=== PATIENT | female | born 1985 | race Caucasian/White ===

== ENCOUNTER → 2017-06-25 | Outpatient (CLI) | payer OTHER ==
[2017-06-25 16:40] LABS: HCT 35.9 % (34.0-46.0); HGB 11.6 gm/dL (11.4-16.0); MCHC 32.4 g/dL (31.0-37.0); MCV 89.7 fL (80.0-100.0); Mean Platelet Volume 8.4; Platelet Count 209 k/uL (150-450); RBC 4.01 m/uL (3.80-5.40); RDW 14.6 % (11.5-15.5); WBC 9.5 k/uL (3.8-10.6)
[2017-06-25 17:09] LABS: ALT 76 U/L (9-52); AST 41 U/L (14-36); Albumin 3.8 g/dL (3.5-5.0); Alkaline Phosphatase 225 U/L (38-126); Bilirubin, Delta 0.1 mg/dL (0.0-0.2); Bilirubin,Unconjugated 0.1 mg/dL (0.0-1.1); Glucose 84 mg/dL (74-99); Total Bilirubin 0.2 mg/dL (0.2-1.3); Total Protein 6.9 g/dL (6.3-8.2)
[2017-06-26 01:39] LABS: HIV AB P24 Non-Reactive (Non-Reactive); HIV P24 AG Non-Reactive (Non-Reactive)
[2017-06-26 05:08] LABS: Toxoplasma Antibody (IgG) <3.0 IU/mL (<7.2); Toxoplasma Antibody (IgM) <3.0 AU/mL (<8.0)
--- NOTE | 2017-06-26 08:10 | US ---
EXAMINATION TYPE: US OB <= 14 wk fetus DATE OF EXAM: 06/25/2017 COMPARISON: NONE CLINICAL HISTORY: 31-year-old female [id number] Confirm Dates. 5, para 3 EXAM PERFORMED: Transabdominal (TA) FINDINGS: EXAM MEASUREMENTS: GESTATIONAL AGE / DATING Physician Established: (14 weeks/3 days) EDC: 12/21/2017 Dates by LMP: (14 weeks/3 days) EDC: 12/21/2017 Dates by First Scan: This is 1st scan Dates by Current Scan for: (12 weeks/0 days +/- 1 week 1 day) EDC: 01/07/2018 MATERNAL ANATOMY Uterus: 12.7 x 5.2 x 10.0cm, anteverted Right Ovary: 2.8 x 1.2 x 1.5cm Left Ovary: 3.2 x 1.8 x 1.8cm Post CDS / Adnexa: wnl Presence of free fluid: no Presence of corpus luteal cyst: not seen Presence of subchorionic bleed: 3.3 x 1.2 x 1.8cm hypoechoic area right of gestational sac. GESTATION / SURVEY CRL: 5.4cm (12 weeks/0 days) Yolk Sac (normal less than 6mm): 5.1mm, upper limits of normal. 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 IMPRESSION: 1. Single live intrauterine with gestational age of 12 weeks 0 days by crown-rump length. T his is smaller and discordant as compared to established gestational age (14 weeks 3 days). Correlate for accuracy of recall of LMP. 2. Moderate-sized perigestational bleed. Given this finding and the discordant gestational age, consi brittany short interval follow-up in 2-3 weeks. 3. Otherwise, complete survey recommended at 18-20 weeks.
== END | disposition home or self-care (01) ==
LOC: RADUSWWP 15:46
PROVIDERS: ATTEND Obstetrics & Gynecology
DX: O26.812 Pregnancy related exhaustion and fatigue, second trimester (principal); O36.5920 Maternal care for other known or suspected poor fetal growth, second trimester, not applicable or unspecified; O20.8 Other hemorrhage in early pregnancy; Z3A.14 14 weeks gestation of pregnancy
CPT/HCPCS: 36415; 76801; 76813; 80076; 82565; 82947; 85027; 86592; 86762; 86777; 86778; 86850; 86900; 86901; 87340; 87390

== ENCOUNTER → 2017-10-03 | Outpatient (CLI) | payer OTHER ==
[2017-10-03 14:16] LABS: HCT 39.2 % (34.0-46.0); HGB 12.8 gm/dL (11.4-16.0); MCH 29.4 pg (25.0-35.0); MCHC 32.6 g/dL (31.0-37.0); MCV 90.4 fL (80.0-100.0); Mean Platelet Volume 7.3; Platelet Count 199 k/uL (150-450); RBC 4.34 m/uL (3.80-5.40); RDW 12.9 % (11.5-15.5); WBC 9.8 k/uL (3.8-10.6)
[2017-10-03 14:28] LABS: Albumin 3.6 g/dL (3.5-5.0); Bilirubin, Delta 0.2 mg/dL (0.0-0.2); Bilirubin,Unconjugated 0.3 mg/dL (0.0-1.1); Total Bilirubin 0.5 mg/dL (0.2-1.3); Total Protein 6.5 g/dL (6.3-8.2)
== END | disposition home or self-care (01) ==
LOC: LABWHC1 12:52
PROVIDERS: ATTEND Obstetrics & Gynecology
DX: Z34.82 Encounter for supervision of other normal pregnancy, second trimester (principal); Z3A.00 Weeks of gestation of pregnancy not specified
CPT/HCPCS: 36415; 80076; 82950; 85027

== ENCOUNTER → 2017-12-25 | Outpatient (CLI) | payer OTHER | END | disposition home or self-care (01) | LOC: FBPOP 22:44 | PROVIDERS: ATTEND Obstetrics & Gynecology | DX: O62.9 Abnormality of forces of labor, unspecified (principal); Z3A.38 38 weeks gestation of pregnancy | CPT/HCPCS: 59025; G0463; 99213 ==

== ENCOUNTER 2017-12-31 06:02 | Inpatient (IN) | payer OTHER ==
[2017-12-31] MEDS ORDERED: OXYTOCIN 20 UNITS/1000 ML NS 1,000 ML IV SCH ×2 (06:14→11:30)
[2017-12-31] MEDS ORDERED: TERBUTALINE 1 MG/ML VIAL SQ PRN (06:14)
[2017-12-31] MEDS ORDERED: METHYLERGONOVINE 0.2 MG/ML 1 ML AMP IM PRN (06:14)
[2017-12-31] MEDS ORDERED: LIDOCAINE 1% (PF) 10 MG/ML (30 ML SDV) SQ PRN (06:14)
[2017-12-31] MEDS ORDERED: OXYTOCIN 10 UNIT/ML 1 ML VIAL IM PRN (06:14)
[2017-12-31] MEDS ORDERED: CARBOPROST TROMETHAMINE 250 MCG/ML 1 ML AMP IM PRN (06:14)
[2017-12-31] MEDS ORDERED: LACTATED RINGERS 1,000 ML IV SCH (06:14)
--- NOTE | 2017-12-31 06:32 | P.HPOB ---
History of Present Illness H&P Date: 12/31/17 Chief Complaint: Requested induction of labor This patient is a pleasant 32-year-old 5 para 3 female estimated date of confinement 01/08/2008 estimated gestational age 39-0/7 weeks who presents to labor and delivery for requested induction of labor. Patient's care has been complicated by chronic sclerosing cholangitis however her liver function tests have remained good. otherwise has been uncomplicated. Review of Systems Gastrointestinal: Reports heartburn Genitourinary: Reports Menstruation: Reports amenorrhea Past Medical History Past Medical History: Liver Disease Additional Past Medical History / Comment(s): Patient has a history of primary sclerosing cholangitis. Patient also has ulcerative colitis. History of Any Multi-Drug Resistant Organisms: None Reported Past Surgical History: Adenoidectomy, Tonsillectomy Past Anesthesia/Blood Transfusion Reactions: No Reported Reaction Past Psychological History: Bipolar Smoking Status: Never smoker Past Alcohol Use History: None Reported Past Drug Use History: None Reported - Past Family History Mother Family Medical History: Thyroid Disorder Additional Family Medical History / Comment(s): pt states that mom took medication for this disorder Medications and Allergies Home Medications Medication Instructions Recorded Confirmed Type Mesalamine [Asacol Hd] 800 mg PO DAILY 01/05/15 01/05/15 History Pnv No.95/Ferrous Fum/Folic AC 1 each PO DAILY 12/25/17 12/25/17 History [ Multivitamin Tablet] Allergies Allergy/AdvReac Type Severity Reaction Status Date / Time NSAIDS (Non-Steroidal Allergy Mild Nausea & Verified 12/31/17 06:14 Anti-Inflamma Vomiting Exam Intake and Output 12/30/17 12/30/17 12/31/17 14:59 22:59 06:59 Other: Weight 92.533 kg - OBG Physical Exam Abdomen: bowel sounds normal, no diffuse tenderness, no bruit present, no guarding noted, no hepatomegaly, no splenomegaly, no mass Vulva: both: normal Vagina: normal moisture, no discharge Cervix: no lesion (Cervix is 4 cm dilated 50% effaced soft.), no discharge Uterus: enlarged (Fundal height in the office was 37 cm) Results blood work shows she is A positive, rubella immune, RPR nonreactive, HIV negative, hepatitis B negative, group B strep was negative, Glucola was normal, ultrasounds have been normal, liver function tests have been mildly elevated but stable. Assessment and Plan Assessment: This is a pleasant 32-year-old 5 para 3 female 39-0/7 weeks gestation with known primary sclerosing cholangitis which is stable, favorable cervix requesting induction of labor. Plan is induction of labor and anticipate vaginal delivery. (1) Elective induction of labor planned Current Visit: No Status: Acute Code(s): [id number] - SNOMED Code(s): 198454176 (2) Primary sclerosing cholangitis Current Visit: No Status: Chronic Code(s): K83.0 - CHOLANGITIS SNOMED Code (s): 530714641
[2017-12-31 06:52] LABS: Basophils % (A) 0 %; Eosinophils # (A) 0.1 k/uL (0-0.7); Eosinophils % (A) 1 %; HGB 13.9 gm/dL (11.4-16.0); Lymphocytes # (A) 1.6 k/uL (1.0-4.8); Lymphocytes % (A) 20 %; MCH 31.4 pg (25.0-35.0); MCHC 34.8 g/dL (31.0-37.0); MCV 90.2 fL (80.0-100.0); Mean Platelet Volume 7.4; Monocytes # (A) 0.7 k/uL (0-1.0); Monocytes % (A) 8 %; Neutrophils # (A) 5.7 k/uL (1.3-7.7); Neutrophils % (A) 68 %; Platelet Count 205 k/uL (150-450); RBC 4.44 m/uL (3.80-5.40); WBC 8.4 k/uL (3.8-10.6)
[2017-12-31 06:59] LABS: Albumin 3.7 g/dL (3.5-5.0); Bilirubin, Delta 0.2 mg/dL (0.0-0.2); Bilirubin,Unconjugated 0.3 mg/dL (0.0-1.1); Total Bilirubin 0.5 mg/dL (0.2-1.3); Total Protein 6.7 g/dL (6.3-8.2)
[2017-12-31 08:05] VITALS: RESP 16; BMI 33.9
--- NOTE | 2017-12-31 11:27 | P.PROBDLV ---
Vaginal Delivery Note - . Vaginal Delivery Note: Normal vaginal delivery viable male Apgars 8 and 9 delivery time is 1114 hrs. Please see dictated H&P intimate details of this patient's admission. Brief summary this pleasant 32-year-old 5 para 3 female 39-0/7 weeks gestation admitted to labor and delivery for requested induction of labor. Patient's 4 cm dilated on admission has artificial rupture membranes for clear fluid. Labor is induced with Pitocin per protocol. She does not request anything for pain control. Patient's labor progresses quickly she gets to complete. With a proximally 3 contraction she pushes the head to the perineum. Posterior perineum was supported and we have controlled delivery of the infant's head over the intact perineum. Mouth and nares are bulb suctioned. There is a nuchal cord which is loose and reduced. We then have deliver the anterior and posterior shoulder and rest this infant's body. This is a vigorous viable male Apgars are 8 and 9 delivery time was 1114 hrs. After delivery of the the umbilical cord is doubly clamped and cut appears to be trivascular. Placenta spontaneously delivered intact. Estimated blood loss is 100 mL. There are no lacerations and no repair. There are no complications. All counts are correct 3.
[2017-12-31] MEDS ORDERED: WITCH HAZEL 1 EACH MED..PAD TOPICAL PRN (11:30)
[2017-12-31] MEDS ORDERED: diphenhydrAMINE 25 MG CAP PO PRN (11:30)
[2017-12-31] MEDS ORDERED: LANOLIN CREAM 5 GM TUBE TOPICAL PRN (11:30)
[2017-12-31] MEDS ORDERED: BISACODYL 10 MG SUPP RECTAL PRN (11:30)
[2017-12-31] MEDS ORDERED: IBUPROFEN 600 MG TAB PO PRN (11:30)
[2017-12-31] MEDS ORDERED: diphenhydrAMINE 50 MG/ML 1 ML VIAL IVP PRN (11:30)
[2017-12-31] MEDS ORDERED: ZOLPIDEM 5 MG TAB PO PRN (11:30)
[2017-12-31] MEDS ORDERED: SIMETHICONE 80 MG CHEWABLE PO PRN (11:30)
[2017-12-31] MEDS ORDERED: HYDROCORTISONE 2.5% RECTAL CREAM 30 GM TUBE RECTAL PRN (11:30)
[2017-12-31] MEDS ORDERED: ACETAMINOPHEN TAB 325 MG TAB PO PRN (11:30)
[2017-12-31] MEDS ORDERED: BENZOCAINE/MENTHOL SPRAY 1 GM/SPRAY AEROSOL TOPICAL PRN (11:30)
[2017-12-31] MEDS: SENNOSIDES-DOCUSATE SODIUM 1 EACH TAB PO SCH ×2 (12:12→20:10)
[2018-01-01] MEDS: SENNOSIDES-DOCUSATE SODIUM 1 EACH TAB PO SCH ×2 (08:20→08:33)
[2018-01-01 08:51] VITALS: BP 116/75; PULSE 71; TEMP 98
--- NOTE | 2018-01-01 09:01 | P.DS ---
Providers Date of admission: 12/31/17 06:02 Expected date of discharge: 01/01/18 Attending physician: Bruce Gross Primary care physician: Stated None Hospital Course: This is a 32-year-old female 5 para 3 at 39-0/7 weeks who presented for induction of labor. She delivered vaginally a viable male infant on 12/31/2017 with scores of 9 at 1 minute and 9 at 5 minutes and weight of 7 lbs. 7 oz. Her course has been uncomplicated. She is breast- feeding. Lochia is decreasing. Pain is well-controlled. Vital signs are stable. Abdomen is soft with fundus firm and nontender. Extremity show negative Homans. Impression is status post vaginal delivery day #1. Plan is to discharge home today. Routine instructions are given. She is advised to follow up with Dr. Gross in 6 weeks. She is advised to call the office if she has any further questions or concerns prior to her appointment time. Procedures: Oxytocin induction of labor Spontaneous vaginal delivery of a viable male on 12/31/2017 Patient Condition at Discharge: Stable Plan - Discharge Summary New Discharge Prescriptions: No Action Mesalamine [Asacol Hd] 800 mg PO DAILY Pnv No.95/Ferrous Fum/Folic AC [ Multivitamin Tablet] 1 each PO DAILY Discharge Medication List Mesalamine [Asacol Hd] 800 mg PO DAILY 01/05/15 [History] Pnv No.95/Ferrous Fum/Folic AC [ Multivitamin Tablet] 1 each PO DAILY [History] Follow up Appointment(s)/Referral(s): Bruce Gross MD [STAFF PHYSICIAN] - 6 Weeks Activity/Diet/Wound Care/Special Instructions: Instructions 1. Do not begin any exercise program for 3 weeks. 2. Do not resume sexual relations for 3 weeks or longer if uncomfortable. 3. You may take tub baths or showers at any time. 4. You may use tampons if desired after 3 weeks. 5. Keep the area of episiotomy (stitches) clean and dry. 6. If you are not nursing, wear a good fitting, supportive bra during the day and limit fluid intake for at least 1 week to prevent breast engorgement. 7. Call the office, [phone], within the next week to make appointment for your 6 week checkup if it has not already been made. 8. Report any of the following occurrences to the doctor promptly: a. Heavy, excessive bleeding b. Chills, fever c. Burning or frequency of urination d. Pain or redness and breasts if nursing e. Increasing pain or swelling in episiotomy (stitches). In addition to the above instructions, the following additional should be followed: 1. No heavy lifting or straining (exercising) until after 6 week checkup. 2. Keep abdominal incision clean and dry: You may wear a dressing if more comfortable. 3. Make office appointment for 10 days after going home or as instructed by her doctor. Discharge Disposition: HOME SELF-CARE
== END 2018-01-01 13:15 | disposition home or self-care (01) | DRG 775 ==
LOC: 4FBP 06:02
PROVIDERS: ADMIT Obstetrics & Gynecology; ATTEND Obstetrics & Gynecology
PROC: 10907ZC Drainage of Amniotic Fluid, Therapeutic from Products of Conception, Via Natural or Artificial Opening (ICD-10-PCS; principal; 2017-12-31)
PROC: 10E0XZZ Delivery of Products of Conception, External Approach (ICD-10-PCS; 2017-12-31)
PROC: 3E033VJ Introduction of Other Hormone into Peripheral Vein, Percutaneous Approach (ICD-10-PCS; 2017-12-31)
DX: O69.81X0 Labor and delivery complicated by cord around neck, without compression, not applicable or unspecified (principal); O26.62 Liver and biliary tract disorders in childbirth; Z37.0 Single live birth; Z3A.39 39 weeks gestation of pregnancy; Z79.1 Long term (current) use of non-steroidal anti-inflammatories (NSAID); Z88.6 Allergy status to analgesic agent
CPT/HCPCS: 80076; 85025

== ENCOUNTER 2018-06-18 14:26 | Inpatient (IN) | payer MEDICAID, OTHER ==
[2018-06-18] MEDS ORDERED: SODIUM CHLORIDE 0.9% 1,000 ML IV ONE (15:36)
[2018-06-18] MEDS ORDERED: SODIUM CHLORIDE 0.9% 1,000 ML IV SCH (15:45)
--- NOTE | 2018-06-18 16:01 | ED ---
Recheck HPI - General Chief Complaint: Recheck/Abnormal Lab/Rx Stated Complaint: Feels "foggy", heart is racing Time Seen by Provider: 06/18/18 15:24 Source: patient, RN notes reviewed, old records reviewed Mode of arrival: ambulatory Limitations: no limitations - History of Present Illness Initial Comments: Patient is a 32-year-old female who presents emergency Department today with complaints of feeling foggy and not acting right. Patient has a history of primary sclerosing cholangitis. She previously followed with Dr. Oliveira and also has regular [facility]. Patient reports that she returned home from a vacation in [place] this past week. She reports that while she was in [place] she was hospitalized because of being very sick. She seems confused and not able to tell me her exact finishing diagnosis. But she was sent home on steroids and antibiotics and mesalamine. Patient states that she does not know if she is taking her medications appropriately. She states that she seems very confused and scatter brained. Patient denies any headache. She reports some mild abdominal discomfort and is had a poor appetite over the past few days. Patient is a mother of 4 children, and is currently breast-feeding. She states that it seemed like her milk supplies dwiddling as well. Patient states that she is concerned that her liver enzymes may be elevated causing her to feel foggy and confused. - Related Data Home Medications Medication Instructions Recorded Confirmed Mesalamine [Asacol Hd] 2,400 mg PO BID 01/05/15 06/18/18 Levofloxacin [Levaquin] 500 mg PO DAILY 06/18/18 06/18/18 methylPREDNISolone [Medrol Dose See Taper PO DIRECTED 06/18/18 06/18/18 Pack] metroNIDAZOLE [Flagyl] 500 mg PO TID 06/18/18 06/18/18 Allergies Allergy/AdvReac Type Severity Reaction Status Date / Time NSAIDS (Non-Steroidal AdvReac Mild Nausea & Verified 06/18/18 16:01 Anti-Inflamma Vomiting Review of Systems ROS Statement: Those systems with pertinent positive or pertinent negative responses have been documented in the HPI. ROS Other: All systems not noted in ROS Statement are negative. Past Medical History Past Medical History: Liver Disease Additional Past Medical History / Comment(s): Patient has a history of primary sclerosing cholangitis. Patient also has ulcerative colitis. History of Any Multi-Drug Resistant Organisms: None Reported Past Surgical History: Adenoidectomy, Tonsillectomy Past Anesthesia/Blood Transfusion Reactions: No Reported Reaction Past Psychological History: Bipolar Smoking Status: Never smoker Past Alcohol Use History: None Reported Past Drug Use History: None Reported - Past Family History Mother Family Medical History: Thyroid Disorder Additional Family Medical History / Comment(s): pt states that mom took medication for this disorder General Exam - General Exam Comments Initial Comments: 32-year-old female. Alert and oriented times 3. Patient has somewhat confused conversation and needs to be redirected. Limitations: no limitations General appearance: alert, in no apparent distress Head exam: Present: atraumatic, normocephalic, normal inspection Eye exam: Present: normal appearance, PERRL, EOMI. Absent: scleral icterus, conjunctival injection, periorbital swelling ENT exam: Present: normal exam, mucous membranes moist Neck exam: Present: normal inspection. Absent: tenderness, meningismus, lymphadenopathy Respiratory exam: Present: normal lung sounds bilaterally. Absent: respiratory distress, wheezes, rales, rhonchi, stridor Cardiovascular Exam: Present: regular rate, normal rhythm, normal heart sounds. Absent: systolic murmur, diastolic murmur, rubs, gallop, clicks GI/Abdominal exam: Present: soft, normal bowel sounds. Absent: distended, tenderness, guarding, rebound, rigid Extremities exam: Present: normal inspection, full ROM, normal capillary refill. Absent: tenderness, pedal edema, joint swelling, calf tenderness Back exam: Present: normal inspection Neurological exam: Present: alert, oriented X3, CN II-XII intact Psychiatric exam: Present: normal affect, normal mood, other (Patient has tangential conversation. ) Skin exam: Present: warm, dry, intact, normal color. Absent: rash Course Vital Signs 06/18/18 14:36 Temperature 98.2 F Pulse Rate 66 Respiratory 20 Rate Blood Pressure 135/84 O2 Sat by Pulse 100 Oximetry Medical Decision Making - Medical Decision Making 32-year-old female presents emergency department today with fogginess confusion. She states she's history of primary sclerosing cholangitis. She is concerned that her liver enzymes may be elevated. She was recently admitted and discharged from [facility]. At that time she was started on steroids, Cipro and Flagyl. She's been taking steroids as prescribed. On reevaluation Patient does admit that she has a psychiatric history. Patient has been diagnosed with schizophrenia and bipolar disorder. She's been off medications for many years. She does her admit to multiple stressors within her life. 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 In examination she has no abdominal tenderness she appears well but has a very confused conversation. Tangential conversations and Patient is has to be redirected frequently, no focal deficits on neuro exam. DT of her brain was reviewed and negative for any acute process. After evaluation and normal CT I discussed the case with on-call psych nurse. She evaluated the Patient immediately to believe the patient's started to go into acute psychosis due to possibility of steroids as well as her underlying mental illness history.Patient agrees to all Yaniv sign and first inpatient psychiatric treatment. Her children are home with her . - Lab Data Result diagrams: 06/18/18 16:07 06/18/18 15:55 Lab Results 06/18/18 06/18/18 06/18/18 Range/Units 15:55 15:55 15:55 WBC (3.8-10.6) k/uL RBC (3.80-5.40) m/uL Hgb (11.4-16.0) gm/dL Hct (34.0-46.0) % MCV (80.0-100.0) fL MCH (25.0-35.0) pg MCHC (31.0-37.0) g/dL RDW (11.5-15.5) % Plt Count (150-450) k/uL Neutrophils % % Lymphocytes % % Monocytes % % Eosinophils % % Basophils % % Neutrophils # (1.3-7.7) k/uL Lymphocytes # (1.0-4.8) k/uL Monocytes # (0-1.0) k/uL Eosinophils # (0-0.7) k/uL Basophils # (0-0.2) k/uL PT (9.0-12.0) sec INR (<1.2) APTT (22.0-30.0) sec Sodium 141 (137-145) mmol/L Potassium 4.1 (3.5-5.1) mmol/L Chloride 106 (98-107) mmol/L Carbon Dioxide 24 (22-30) mmol/L Anion Gap 11 mmol/L BUN 12 (7-17) mg/dL Creatinine 0.53 (0.52-1.04) mg/dL Est GFR (CKD-EPI)AfAm >90 (>60 ml/min/1.73 sqM) Est GFR (CKD-EPI)NonAf >90 (>60 ml/min/1.73 sqM) Glucose 91 (74-99) mg/dL Calcium 9.5 (8.4-10.2) mg/dL Total Bilirubin 0.7 (0.2-1.3) mg/dL AST 29 (14-36) U/L ALT 55 H (9-52) U/L Alkaline Phosphatase 299 H (38-126) U/L Ammonia <9 (<30) umol/L Total Protein 7.5 (6.3-8.2) g/dL Albumin 4.2 (3.5-5.0) g/dL Urine Color Urine Appearance (Clear) Urine pH (5.0-8.0) Ur Specific [place] (1.001-1.035) Urine Protein (Negative) Urine Glucose (UA) (Negative) Urine Ketones (Negative) Urine Blood (Negative) Urine Nitrite (Negative) Urine Bilirubin (Negative) Urine Urobilinogen (<2.0) mg/dL Ur Leukocyte Esterase (Negative) Urine HCG, Qual Not Detected (Not Detectd) Urine Opiates Screen (NotDetected) Ur Oxycodone Screen (NotDetected) Urine Methadone Screen (NotDetected) Ur Propoxyphene Screen (NotDetected) Ur Barbiturates Screen (NotDetected) U Tricyclic Antidepress (NotDetected) Ur Phencyclidine Scrn (NotDetected) Ur Amphetamines Screen (NotDetected) U Methamphetamines Scrn (NotDetected) U Benzodiazepines Scrn (NotDetected) Urine Cocaine Screen (NotDetected) U Marijuana (THC) Screen (NotDetected) 06/18/18 06/18/18 06/18/18 Range/Units 15:55 15:55 15:55 WBC (3.8-10.6) k/uL RBC (3.80-5.40) m/uL Hgb (11.4-16.0) gm/dL Hct (34.0-46.0) % MCV (80.0-100.0) fL MCH (25.0-35.0) pg MCHC (31.0-37.0) g/dL RDW (11.5-15.5) % Plt Count (150-450) k/uL Neutrophils % % Lymphocytes % % Monocytes % % Eosinophils % % Basophils % % Neutrophils # (1.3-7.7) k/uL Lymphocytes # (1.0-4.8) k/uL Monocytes # (0-1.0) k/uL Eosinophils # (0-0.7) k/uL Basophils # (0-0.2) k/uL PT 10.3 (9.0-12.0) sec INR 1.0 (<1.2) APTT 22.3 (22.0-30.0) sec Sodium (137-145) mmol/L Potassium (3.5-5.1) mmol/L Chloride (98-107) mmol/L Carbon Dioxide (22-30) mmol/L Anion Gap mmol/L BUN (7-17) mg/dL Creatinine (0.52-1.04) mg/dL Est GFR (CKD-EPI)AfAm (>60 ml/min/1.73 sqM) Est GFR (CKD-EPI)NonAf (>60 ml/min/1.73 sqM) Glucose (74-99) mg/dL Calcium (8.4-10.2) mg/dL Total Bilirubin (0.2-1.3) mg/dL AST (14-36) U/L ALT (9-52) U/L Alkaline Phosphatase (38-126) U/L Ammonia (<30) umol/L Total Protein (6.3-8.2) g/dL Albumin (3.5-5.0) g/dL Urine Color Yellow Urine Appearance Clear (Clear) Urine pH 6.5 (5.0-8.0) Ur Specific [place] 1.009 (1.001-1.035) Urine Protein Negative (Negative) Urine Glucose (UA) Negative (Negative) Urine Ketones Trace H (Negative) Urine Blood Negative (Negative) Urine Nitrite Negative (Negative) Urine Bilirubin Negative (Negative) Urine Urobilinogen <2.0 (<2.0) mg/dL Ur Leukocyte Esterase Negative (Negative) Urine HCG, Qual (Not Detectd) Urine Opiates Screen Not Detected (NotDetected) Ur Oxycodone Screen Not Detected (NotDetected) Urine Methadone Screen Not Detected (NotDetected) Ur Propoxyphene Screen Not Detected (NotDetected) Ur Barbiturates Screen Not Detected (NotDetected) U Tricyclic Antidepress Not Detected (NotDetected) Ur Phencyclidine Scrn Not Detected (NotDetected) Ur Amphetamines Screen Not Detected (NotDetected) U Methamphetamines Scrn Not Detected (NotDetected) U Benzodiazepines Scrn Not Detected (NotDetected) Urine Cocaine Screen Not Detected (NotDetected) U Marijuana (THC) Screen Not Detected (NotDetected) 06/18/18 Range/Units 16:07 WBC 15.0 H (3.8-10.6) k/uL RBC 4.34 (3.80-5.40) m/uL Hgb 13.1 (11.4-16.0) gm/dL Hct 38.8 (34.0-46.0) % MCV 89.4 (80.0-100.0) fL MCH 30.3 (25.0-35.0) pg MCHC 33.9 (31.0-37.0) g/dL RDW 13.6 (11.5-15.5) % Plt Count 325 (150-450) k/uL Neutrophils % 78 % Lymphocytes % 12 % Monocytes % 5 % Eosinophils % 1 % Basophils % 0 % Neutrophils # 11.7 H (1.3-7.7) k/uL Lymphocytes # 1.8 (1.0-4.8) k/uL Monocytes # 0.8 (0-1.0) k/uL Eosinophils # 0.2 (0-0.7) k/uL Basophils # 0.0 (0-0.2) k/uL PT (9.0-12.0) sec INR (<1.2) APTT (22.0-30.0) sec Sodium (137-145) mmol/L Potassium (3.5-5.1) mmol/L Chloride (98-107) mmol/L Carbon Dioxide (22-30) mmol/L Anion Gap mmol/L BUN (7-17) mg/dL Creatinine (0.52-1.04) mg/dL Est GFR (CKD-EPI)AfAm (>60 ml/min/1.73 sqM) Est GFR (CKD-EPI)NonAf (>60 ml/min/1.73 sqM) Glucose (74-99) mg/dL Calcium (8.4-10.2) mg/dL Total Bilirubin (0.2-1.3) mg/dL AST (14-36) U/L ALT (9-52) U/L Alkaline Phosphatase (38-126) U/L Ammonia (<30) umol/L Total Protein (6.3-8.2) g/dL Albumin (3.5-5.0) g/dL Urine Color Urine Appearance (Clear) Urine pH (5.0-8.0) Ur Specific [place] (1.001-1.035) Urine Protein (Negative) Urine Glucose (UA) (Negative) Urine Ketones (Negative) Urine Blood (Negative) Urine Nitrite (Negative) Urine Bilirubin (Negative) Urine Urobilinogen (<2.0) mg/dL Ur Leukocyte Esterase (Negative) Urine HCG, Qual (Not Detectd) Urine Opiates Screen (NotDetected) Ur Oxycodone Screen (NotDetected) Urine Methadone Screen (NotDetected) Ur Propoxyphene Screen (NotDetected) Ur Barbiturates Screen (NotDetected) U Tricyclic Antidepress (NotDetected) Ur Phencyclidine Scrn (NotDetected) Ur Amphetamines Screen (NotDetected) U Methamphetamines Scrn (NotDetected) U Benzodiazepines Scrn (NotDetected) Urine Cocaine Screen (NotDetected) U Marijuana (THC) Screen (NotDetected) - Radiology Data Radiology results: report reviewed Negative computed tomography scan of the brain. No change. Disposition Clinical Impression: Psychosis Disposition: TRANSFER TO PSYCH HOSP/UNIT Condition: Stable Is patient prescribed a controlled substance at d/c from ED?: No Referrals: Gerson Segovia MD [Primary Care Provider] - 1-2 days Time of Disposition: 19:49
[2018-06-18 16:16] LABS: Basophils % (A) 0 %; Eosinophils # (A) 0.2 k/uL (0-0.7); Eosinophils % (A) 1 %; HCT 38.8 % (34.0-46.0); HGB 13.1 gm/dL (11.4-16.0); Lymphocytes # (A) 1.8 k/uL (1.0-4.8); Lymphocytes % (A) 12 %; MCH 30.3 pg (25.0-35.0); MCHC 33.9 g/dL (31.0-37.0); MCV 89.4 fL (80.0-100.0); Mean Platelet Volume 6.8; Monocytes # (A) 0.8 k/uL (0-1.0); Monocytes % (A) 5 %; Neutrophils # (A) 11.7 k/uL (1.3-7.7); Neutrophils % (A) 78 %; Platelet Count 325 k/uL (150-450); RBC 4.34 m/uL (3.80-5.40); RDW 13.6 % (11.5-15.5)
[2018-06-18 16:23] LABS: Partial Thromboplastin Time 22.3 sec (22.0-30.0); Prothrombin Time 10.3 sec (9.0-12.0)
[2018-06-18 16:27] LABS: ALT 55 U/L (9-52); AST 29 U/L (14-36); Albumin 4.2 g/dL (3.5-5.0); Alkaline Phosphatase 299 U/L (38-126); Anion Gap 11 mmol/L; Blood Urea Nitrogen 12 mg/dL (7-17); Calcium 9.5 mg/dL (8.4-10.2); Carbon Dioxide 24 mmol/L (22-30); Chloride 106 mmol/L (98-107); Glucose 91 mg/dL (74-99); Potassium 4.1 mmol/L (3.5-5.1); Sodium 141 mmol/L (137-145); Total Bilirubin 0.7 mg/dL (0.2-1.3); Total Protein 7.5 g/dL (6.3-8.2)
[2018-06-18 16:52] LABS: Appearance,Urine Clear (Clear); Bilirubin,Urine Negative (Negative); Blood,Urine Negative (Negative); Color,Urine Yellow; Glucose,Urine (UA) Negative (Negative); Ketones,Urine Trace (Negative); Leukocyte Esterase,Urine Negative (Negative); Nitrite,Urine Negative (Negative); PH, Urine 6.5 (5.0-8.0); Protein,Urine Negative (Negative); Specific Gravity,Urine 1.009 (1.001-1.035); Urobilinogen,Urine <2.0 mg/dL (<2.0)
--- NOTE | 2018-06-18 17:52 | CT ---
EXAMINATION TYPE: CT brain wo con DATE OF EXAM: 06/18/2018 COMPARISON: 10/25/2013 HISTORY: confusion CT DLP: 1099.4 mGycm. Automated Exposure Control for Dose Reduction was Utilized. TECHNIQUE: CT scan of the head is performed without contrast. FINDINGS: Ventricles of normal size. There is no mass effect nor midline shift. There is no sign of i ntracranial hemorrhage. The calvarium is intact. IMPRESSION: Negative CT scan of the brain. No change.
[2018-06-18 19:22] LABS: Amphetamine Screen,Urine Not Detected (NotDetected); Barbiturate Screen,Urine Not Detected (NotDetected); Benzodiazepines Screen,Urine Not Detected (NotDetected); Cocaine Screen,Urine Not Detected (NotDetected); Methadone Screen, Urine Not Detected (NotDetected); Opiate Screen,Urine Not Detected (NotDetected); Oxycodone Screen, Urine Not Detected (NotDetected); Phencyclidine Screen,Urine Not Detected (NotDetected); Tricyclic Antidepressant,Urine Not Detected (NotDetected); Urn Cannabinoid Scrn Not Detected (NotDetected)
[2018-06-18] MEDS ORDERED: MAGNESIUM HYDROXIDE 2,400 MG/10 ML CUP PO PRN (21:00)
[2018-06-18] MEDS ORDERED: ACETAMINOPHEN TAB 325 MG TAB PO PRN (21:00)
[2018-06-18] MEDS ORDERED: MAG HYDROX/AL HYDROX/SIMETH 30 ML CUP PO PRN (21:00)
[2018-06-18] MEDS ORDERED: ZIPRASIDONE 20 MG VIAL IM PRN (21:00)
[2018-06-18 21:50] VITALS: BMI 26.0
[2018-06-19] MEDS: LORazepam 1 MG TAB PO PRN (00:28)
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
--- NOTE | 2018-06-19 13:04 | P.HPMEDMHU ---
History of Present Illness H&P Date: 06/19/18 Chief Complaint: confusion Patient is a 32 yo CF with a hx of primary sclerosing cholangitis, ulcerative colitis, and bipolar disorder who presented to the hospital with complaints of confusion. She was seen in the ER. Her initial evaluation so slightly elevated white blood cell count likely secondary to recent steroid use, mildly elevated ALP and alk phos which are actually at or better than her normal, and trace urine ketones. Head CT was negative. She was subsequently admitted to the mental health unit. Patient seen and examined at bedside. She is very confused and has tangential thinking. She is unable to put a full story together. After much discussion it appears that she was seen at a hospital in [place] recently. She was found have a flare of her primary sclerosing cholangitis was treated with IV steroids , IV antibiotics, IV pain medications, and having her mesalamine increased. She was discharged home on oral antibiotics and steroids. She since has been having a foggy feeling and trouble thinking. She states she gets this often when her liver enzymes are elevated. Her ammonia level was less than 9 in the ER. She denies any recent fevers or chills. She is not having any active diarrhea she has no blood in her stools. She denies any chest pain or shortness of breath. She reports that she is having a lot of difficulty processing her thoughts appropriately. She is a 5-month-old baby at home and had been breast-feeding before this. Her PCP is Dr. Segovia and her GI is Dr. Barba. Her ABD is much improved and at her baseline. Review of Systems Limited confusion. Negative otherwise. Past Medical History Past Medical History: Liver Disease Additional Past Medical History / Comment(s): Patient has a history of primary sclerosing cholangitis. Patient also has ulcerative colitis. History of Any Multi-Drug Resistant Organisms: None Reported Past Surgical History: Adenoidectomy, Tonsillectomy Additional Past Surgical History / Comment(s): ERCP and Colonoscopy Past Anesthesia/Blood Transfusion Reactions: No Reported Reaction Smoking Status: Never smoker Past Alcohol Use History: Occasional Past Drug Use History: None Reported Additional History: Lives with and children - Past Family History Mother Family Medical History: Thyroid Disorder Additional Family Medical History / Comment(s): pt states that mom took medication for this disorder Father Additional Family Medical History / Comment(s): PTSD Medications and Allergies Home Medications Medication Instructions Recorded Confirmed Type Mesalamine [Asacol Hd] 2,400 mg PO BID 01/05/15 06/18/18 History Levofloxacin [Levaquin] 500 mg PO DAILY 06/18/18 06/18/18 History methylPREDNISolone [Medrol Dose See Taper PO DIRECTED 06/18/18 06/18/18 History Pack] metroNIDAZOLE [Flagyl] 500 mg PO TID 06/18/18 06/18/18 History Allergies Allergy/AdvReac Type Severity Reaction Status Date / Time NSAIDS (Non-Steroidal AdvReac Mild Nausea & Verified 06/18/18 21:51 Anti-Inflamma Vomiting Physical Exam Osteopathic Statement: *. No significant issues noted on an osteopathic structural exam other than those noted in the History and Physical/Consult. Vitals: Vital Signs Temp Pulse Pulse Resp BP BP Pulse Ox 06/19/18 00:36 97.8 F 86 16 122/73 06/18/18 21:41 97.8 F 91 18 133/96 06/18/18 20:26 98 F 76 16 133/82 100 06/18/18 14:36 98.2 F 66 20 135/84 100 Intake and Output 06/18/18 06/19/18 06/19/18 22:59 06:59 14:59 Other: Weight 72.121 kg General: non toxic, no distress, appears at stated age, normal weight Derm: no unusual rashes/lesions no unusual ecchymoses, warm, dry Head: atraumatic, normocephalic, symmetric Eyes: EOMI, no lid lag, anicteric sclera, pupils equal round reactive to light ENT: Nose and ears atraumatic, no thrush, no pharyngeal erythema Neck: No thyromegaly, no cervical lymphadenopathy, trachea midline, supple Mouth: no lip lesion, mucus membranes moist Cardiovascular: S1S2 reg, no murmur, positive posterior tibial pulse bilateral, no edema, capillary refill less than 2 seconds Lungs: CTA bilateral, no rhonchi, no rales , no accessory muscle use Abdominal: soft, nontender to palpation, no guarding, no appreciable organomegaly, normal bowel sounds Ext: no gross muscle atrophy, muscle strength 5 out of 5 in all 4 extremities grossly, no contractures, Neuro: CN II-XI grossly intact, light touch intact all 4 extremities, finger to nose within normal limits, Psych: Awake, Confused tangential thinking, appropriate affect Cranial Nerve Examination - Cranial Nerves Cranial Nerve II- Optic: Intact Cranial Nerve III- Oculomotor: Intact Cranial Nerve IV- Trochlear: Intact Cranial Nerve V- Trigeminal: Intact Cranial Nerve - Abducens: Intact Cranial Nerve VII- Facial: Intact Cranial Nerve VIII- Auditory: Intact Cranial Nerve IX- Glossopharyngeal: Intact Cranial Nerve X- Vagus: Intact Cranial Nerve XI- Accessory: Intact Cranial Nerve XII- Hypoglossal: Intact Results CBC & Chem 7: 06/18/18 16:07 06/18/18 15:55 Labs: Abnormal Lab Results - Last 24 Hours (Table) 06/18/18 06/18/18 06/18/18 Range/Units 15:55 15:55 16:07 WBC 15.0 H (3.8-10.6) k/uL Neutrophils # 11.7 H (1.3-7.7) k/uL ALT 55 H (9-52) U/L Alkaline Phosphatase 299 H (38-126) U/L Urine Ketones Trace H (Negative) Thrombosis Risk Factor Assmnt - DVT/VTE Prophylaxis DVT/VTE Prophylaxis: Low risk, early ambulation encouraged - Choose All That Apply Any of the Below Risk Factors Present?: Yes Each Factor Represents 1 point: or Other Risk Factors: No Other congenital or acquired thrombophilia - If yes, enter type in comment: No Thrombosis Risk Factor Assessment Total Risk Factor Score: 1 Thrombosis Risk Factor Assessment Level: Low Risk Assessment and Plan Assessment: Leukocytosis - likely due to steroids recheck in 24-48 hours - monitor fever profile Primary sclerosis cholangitis - LFT at baseline - outpatient follow-up with Dr. Barba - records from [place] regarding steroid dosing Ulcerative colitis - Mesalamine B[facility] with [facility] Thank you for allowing us to participate in the care of this patient. We will follow peripherally. Do not hesitate to contact us with questions. Someone can be reached from the [facility] hospitalist group at all hours of the day at [phone].
[2018-06-19] MEDS: lamoTRIgine 25 MG TAB PO SCH (20:21)
[2018-06-19] MEDS: PALIPERIDONE 3 MG TAB.ER.24 PO SCH (20:21)
--- NOTE | 2018-06-20 15:18 | P.PN ---
Progress Note - Text Progress Note Date: 06/20/18 Interval history: Patient is seen in cross coverage today. She reports that overall she is feeling better. She does describe having some history of racing thoughts. She does not seem to verbalize any significant side effects with the end they are Lamictal. We did go over in detail information regarding on breast -feeding in regards to and vague on Lamictal and she will discuss further with her attending psychiatrist on Friday. Her infant is being formula fed while she is in the hospital. She does make reference to wanting to be able to be discharged from the hospital. Mental status exam: She is alert and cooperative with the interview. Her speech is fluent, not rapid or pressured. Her thought processes are organized. Her mood seems to be improved. She denies any thoughts of harm to self or others. She does not verbalize any hallucinations or perez delusions. She does describe some history of racing thoughts. Plan/recommendations: Patient will be maintained on current psychotropic medication regimen. She is encouraged to talk with her attending psychiatrist on Friday regarding her medications and issues with breast-feeding. We will continue to monitor for any medication side effects monitor her ongoing response to treatment.
[2018-06-20] MEDS: lamoTRIgine 25 MG TAB PO SCH (20:24)
[2018-06-20] MEDS: PALIPERIDONE 3 MG TAB.ER.24 PO SCH (20:24)
[2018-06-21] MEDS: LORazepam 1 MG TAB PO PRN (02:25)
[2018-06-21 08:23] LABS: ALT 54 U/L (9-52); AST 36 U/L (14-36); Albumin 4.3 g/dL (3.5-5.0); Alkaline Phosphatase 311 U/L (38-126); Anion Gap 7 mmol/L; Blood Urea Nitrogen 12 mg/dL (7-17); Carbon Dioxide 28 mmol/L (22-30); Chloride 106 mmol/L (98-107); Glucose 97 mg/dL (74-99); Potassium 4.4 mmol/L (3.5-5.1); Sodium 141 mmol/L (137-145); Total Bilirubin 1.1 mg/dL (0.2-1.3); Total Protein 7.7 g/dL (6.3-8.2)
[2018-06-21 08:25] LABS: HCT 43.9 % (34.0-46.0); HGB 14.5 gm/dL (11.4-16.0); MCH 29.9 pg (25.0-35.0); MCHC 33.2 g/dL (31.0-37.0); MCV 90.1 fL (80.0-100.0); Mean Platelet Volume 6.8; Platelet Count 345 k/uL (150-450); RBC 4.87 m/uL (3.80-5.40); RDW 13.7 % (11.5-15.5); WBC 10.4 k/uL (3.8-10.6)
--- NOTE | 2018-06-21 16:48 | P.PN ---
Progress Note - Text Progress Note Date: 06/21/18 Interval history: Patient is seen in cross coverage again today. She reports that she slept at least 6 hours last night. She relays that she signed a notice to wanting to leave the hospital yesterday. She does seem like she has been compliant with the psychotropic medications. Mental status exam: She is alert and cooperative with the interview. Her speech is fluent, not rapid or pressured. Thought processes organized. Her mood she describes as "fine." She denies any thoughts of harm to self or others. She does not verbalize any hallucinations. She does not show any agitation. Her thought processes overall are organized. Plan: Patient will be maintained on current psychotropic medications. We will monitor for any medication side effects monitor her ongoing response to treatment. She is encouraged to talk with her primary psychiatrist further about concerns with the medication and breast-feeding.
[2018-06-21] MEDS: lamoTRIgine 25 MG TAB PO SCH (20:14)
[2018-06-21] MEDS: PALIPERIDONE 3 MG TAB.ER.24 PO SCH (20:14)
--- NOTE | 2018-06-22 10:22 | P.PN ---
Subjective Progress Note Date: 06/22/18 Principal diagnosis: Bipolar affective disorder with acute psychosis secondary to steroid induced I fell horribly depressed sad, paranoid and tearful. Objective - Vital Signs Vital signs: Vital Signs Temp 98.1 F 06/22/18 06:22 Pulse 89 06/22/18 06:22 Resp 19 06/22/18 06:22 BP 114/79 06/22/18 06:22 Pulse Ox 100 06/18/18 20:26 Intake & Output 06/21/18 06/22/18 06/22/18 18:59 06:59 18:59 Weight 70.4 kg - Labs CBC & Chem 7: 06/21/18 07:54 06/21/18 07:54 Assessment and Plan Assessment: Patient is a 32-year-old female who presents emergency Department today with complaints of feeling foggy and not acting right. Patient has a history of primary sclerosing cholangitis. She previously followed with Dr. Oliveira and also has regular scheduled MRCP is in [facility] scans at [facility]. Patient reports that she returned home from a vacation in [place] this past week. She reports that while she was in [place] she was hospitalized because of being very sick. She seems confused and not able to tell me her exact finishing diagnosis. But she was sent home on steroids and antibiotics and mesalamine. Patient states that she does not know if she is taking her medications appropriately. She states that she seems very confused and scatter brained. Patient denies any headache. She reports some mild abdominal discomfort and is had a poor appetite over the past few days. Patient is a mother of 4 children, and is currently breast-feeding. She states that it seemed like her milk supplies dwiddling as well. Patient states that she is concerned that her liver enzymes may be elevated causing her to feel foggy and confused. - . Musculoskeletal Examination - Abnormal/Involuntary Movements: [none] Strength: [greater than antigravity (greater than/equal to 3/5) in all extremities:] Muscle Tone: [no impairment Gait: [grossly normal Station: [grossly normal Mental Status Examination - General Appearance: [ casual, appears stated age Speech/Language: [spontaneous, rapid, rambled, expressive, soft] Attitude/Behavior: [cooperative, guarded, irritable, withdrawn, indifferent] Mood: [depressed, anxious, irritable, fearful, hopelessness Affect: [ lively, incongruent, labile Orientation: [time, person, place situation] Thought Content: [wnl Risk Factors: [Recurrent suicidal (ideations, plan), and/or Homicidal (ideations , plan)] Perception: [wnl, hallucinations (auditory, visual, tactile) Thought Processes: [concrete, circumstantial Concentration/Attention Span: [ impaired] [Per observation and interview with the patient] Recent Memory: [ impaired] [0 out of 3 in 3 minutes] Remote Memory: [wnl] [past events, as related history] Intelligence: [ above average] [based on history, based on vocabulary, syntax, grammar, and content] Judgement: [fair] [per patient's behavior/history of present illness] Insight: [fair] [understanding severity of illness/history of present illness] Admitting Diagnosis: [Bipolar affective disorder with acute psychosis secondary to steroid induced] Patient Strengths - Personal Skills: [x] Achievements: [x] Steady employment/financial stability: [x] Housing stability: [x] Able to vocalize needs: [x]Values and traditions: [x] Motivation, determination, readiness for change: [x] Setting and pursuing goals, hopes, dreams, aspirations: [x] Resources - social, interpersonal, monetary: [x] Interpersonal relationships and supports available - family, relatives, friends : [x] Patient Limitations: [medication, complicated medical illness, legal issues, lack of social supports Initial Plan of Care: [She will be admitted formal voluntary for inpatient psychiatric treatment on [address] [place] [address]. She will be put on usual 15 minute checks and usual protocol the psychiatric unit for safety and well-being. She'll be evaluated by medicine, psychiatry, nursing staff, social work, and occupational therapy. She will be integrated [facility] milieu therapeutic environment whereby she'll be expected to go to groups take medications and work towards discharge. A thorough biopsychosocial assessment will be done with team management a multidisciplinary group on a daily basis. She'll be started on Invega 3 mg by mouth daily at bedtime for acute psychosis and Lamictal 25 mg by mouth daily at bedtime for mood stability. We did talk about the benefit risk ratio of being on medications and breast-feeding and further discussion will be had during her hospital stay.] Estimated Length of Stay: [5 days] Initial Discharge Plan: [home, referred to therapist Prognosis: [fair] Justification for Inpatient Hospitalization - [ anxiety, depression resulting in significant loss of functioning.] [Dangerous to self, others, or property with need for controlled environment.] [Emotional or behavioral conditions and complications requiring 24 hour medical and nursing care.] [Need for special drug therapy, or other therapeutic program requiring continuous hospitalization.] (1) Bipolar disorder, current episode mixed, severe, with psychotic features Current Visit: No Status: Acute Priority: High Code(s): F31.64 - BIPOLAR DISORD, CRNT EPISODE MIXED, SEVERE, W PSYCH FEATURES SNOMED Code(s): 694719345 Time with Patient: Greater than 30
[2018-06-22] MEDS ORDERED: lamoTRIgine 25 MG TAB PO SCH (21:00)
[2018-06-22] MEDS ORDERED: PALIPERIDONE 3 MG TAB.ER.24 PO SCH (21:00)
--- NOTE | 2018-06-23 11:32 | P.PN ---
Subjective Progress Note Date: 06/23/18 Principal diagnosis: Bipolar affective disorder with acute psychosis secondary to steroid induced I fell horribly depressed sad, paranoid and tearful. 06/23/2018: I am depressed, lonely, craving human contact and the sexual desires. She denies any suicidal homicidal. She is extremely paranoid, felt full of guilt and shame for action she's done in the past and at present. Objective - Vital Signs Vital signs: Vital Signs Temp 98.3 F 06/23/18 06:22 Pulse 115 H 06/23/18 06:22 Resp 16 06/23/18 06:22 BP 137/85 06/23/18 06:22 Pulse Ox 100 06/18/18 20:26 - Labs CBC & Chem 7: 06/21/18 07:54 06/21/18 07:54 Assessment and Plan Assessment: Patient is a 32-year-old female who presents emergency Department today with complaints of feeling foggy and not acting right. Patient has a history of primary sclerosing cholangitis. She previously followed with Dr. Oliveira and also has regular scheduled MRCP is in H[facility] scans at [facility]. Patient reports that she returned home from a vacation in [place] this past week. She reports that while she was in [place] she was hospitalized because of being very sick. She seems confused and not able to tell me her exact finishing diagnosis. But she was sent home on steroids and antibiotics and mesalamine. Patient states that she does not know if she is taking her medications appropriately. She states that she seems very confused and scatter brained. Patient denies any headache. She reports some mild abdominal discomfort and is had a poor appetite over the past few days. Patient is a mother of 4 children, and is currently breast-feeding. She states that it seemed like her milk supplies dwiddling as well. Patient states that she is concerned that her liver enzymes may be elevated causing her to feel foggy and confused. - . Musculoskeletal Examination - Abnormal/Involuntary Movements: [none] Strength: [greater than antigravity (greater than/equal to 3/5) in all extremities:] Muscle Tone: [no impairment Gait: [grossly normal Station: [grossly normal Mental Status Examination - General Appearance: [ casual, appears stated age, childlike behavior Speech/Language: [spontaneous, rapid, rambled, expressive, soft] Attitude/Behavior: [cooperative, guarded, irritable, withdrawn, indifferent] Mood: [depressed, anxious, irritable, fearful, hopelessness Affect: [ lively, incongruent, labile Orientation: [time, person, place situation] Thought Content: [wnl Risk Factors: [Recurrent suicidal (ideations, plan), and/or Homicidal (ideations , plan)] Perception: [wnl, denies hallucinations (auditory, visual, tactile) Thought Processes: [concrete, circumstantial Concentration/Attention Span: [ impaired] [Per observation and interview with the patient] Recent Memory: [ impaired] [0 out of 3 in 3 minutes] Remote Memory: [wnl] [past events, as related history] Intelligence: [ above average] [based on history, based on vocabulary, syntax, grammar, and content] Judgement: [fair] [per patient's behavior/history of present illness] Insight: [fair] [understanding severity of illness/history of present illness] lacks insight on.peer Interactions Admitting Diagnosis: [Bipolar affective disorder with acute psychosis secondary to steroid induced] Patient Strengths - Personal Skills: [x] Achievements: [x] Steady employment/financial stability: [x] Housing stability: [x] Able to vocalize needs: [x]Values and traditions: [x] Motivation, determination, readiness for change: [x] Setting and pursuing goals, hopes, dreams, aspirations: [x] Resources - social, interpersonal, monetary: [x] Interpersonal relationships and supports available - family, relatives, friends : [x] Patient Limitations: [medication, complicated medical illness, legal issues, lack of social supports Initial Plan of Care: [She will be admitted formal voluntary for inpatient psychiatric treatment on [address] [place] [address]. She will be put on usual 15 minute checks and usual protocol the psychiatric unit for safety and well-being. She'll be evaluated by medicine, psychiatry, nursing staff, social work, and occupational therapy. She will be integrated [facility] milieu therapeutic environment whereby she'll be expected to go to groups take medications and work towards discharge. A thorough biopsychosocial assessment will be done with team management a multidisciplinary group on a daily basis. She'll be started on Invega 3 mg by mouth daily at bedtime for acute psychosis and Lamictal 25 mg by mouth daily at bedtime for mood stability. We did talk about the benefit risk ratio of being on medications and breast-feeding and further discussion will be had during her hospital stay.] Estimated Length of Stay: [5 days] Initial Discharge Plan: [home, referred to therapist Prognosis: [fair] Justification for Inpatient Hospitalization - [ anxiety, depression resulting in significant loss of functioning.] [Dangerous to self, others, or property with need for controlled environment.] [Emotional or behavioral conditions and complications requiring 24 hour medical and nursing care.] Inappropriate. Interaction [Need for special drug therapy, or other therapeutic program requiring continuous hospitalization.] (1) Bipolar disorder, current episode mixed, severe, with psychotic features Current Visit: No Status: Acute Priority: High Code(s): F31.64 - BIPOLAR DISORD, CRNT EPISODE MIXED, SEVERE, W PSYCH FEATURES SNOMED Code(s): 079236709 Plan: She'll be started on Invega 3 mg by mouth daily at bedtime for acute psychosis and Lamictal 25 mg by mouth daily at bedtime for mood stability. We did talk about the benefit risk ratio of being on medications and breast-feeding and further discussion will be had during her hospital stay. 06/23/2018: Increase Invega 6 mg by mouth at bedtime for acute psychosis and delusional thinking, increase Lamictal to 50 mg by mouth daily at bedtime at bedtime for mood stability and add Effexor 37.5 mg XR by mouth daily at bedtime for depression and anxiety. His we titrated until 9 mg of Invega and 200 mg Lamictal with the titration dose of Effexor to 25 mg xr a day] Time with Patient: Greater than 30
[2018-06-23] MEDS ORDERED: VENLAFAXINE HCL ER 37.5 MG CAP PO SCH (21:00)
[2018-06-23] MEDS ORDERED: lamoTRIgine 25 MG TAB PO SCH (21:00)
[2018-06-23] MEDS ORDERED: PALIPERIDONE 6 MG TAB.ER.24 PO SCH (21:00)
[2018-06-24] MEDS: LORazepam 1 MG TAB PO PRN (06:18)
--- NOTE | 2018-06-24 11:21 | P.PN ---
Subjective Progress Note Date: 06/24/18 Principal diagnosis: Bipolar affective disorder with acute psychosis secondary to steroid induced I fell horribly depressed sad, paranoid and tearful. 06/23/2018: I am depressed, lonely, craving human contact and the sexual desires. She denies any suicidal homicidal. She is extremely paranoid, felt full of guilt and shame for action she's done in the past and at present. 06/24/2018: I'm less depressed today lonely and wanting to get home and my children. I have said some concern about my and how these interacting with the children. She denies suicidal or homicidal ideation today. She is able to resend her AMA form today. Objective - Vital Signs Vital signs: Vital Signs Temp 98.3 F 06/24/18 06:10 Pulse 138 H 06/24/18 06:10 Resp 18 06/24/18 06:10 BP 134/94 06/24/18 06:10 Pulse Ox 100 06/18/18 20:26 - Labs CBC & Chem 7: 06/21/18 07:54 06/21/18 07:54 Assessment and Plan Assessment: Patient is a 32-year-old female who presents emergency Department today with complaints of feeling foggy and not acting right. Patient has a history of primary sclerosing cholangitis. She previously followed with Dr. Oliveira and also has regular scheduled MRCP is in HIDA scans at [facility]. Patient reports that she returned home from a vacation in [place] this past week. She reports that while she was in [place] she was hospitalized because of being very sick. She seems confused and not able to tell me her exact finishing diagnosis. But she was sent home on steroids and antibiotics and mesalamine. Patient states that she does not know if she is taking her medications appropriately. She states that she seems very confused and scatter brained. Patient denies any headache. She reports some mild abdominal discomfort and is had a poor appetite over the past few days. Patient is a mother of 4 children, and is currently breast-feeding. She states that it seemed like her milk supplies dwiddling as well. Patient states that she is concerned that her liver enzymes may be elevated causing her to feel foggy and confused. - . Musculoskeletal Examination - Abnormal/Involuntary Movements: [none] Strength: [greater than antigravity (greater than/equal to 3/5) in all extremities:] Muscle Tone: [no impairment Gait: [grossly normal Station: [grossly normal Mental Status Examination - General Appearance: [ casual, appears stated age, childlike behavior Speech/Language: [spontaneous, rambled, expressive, soft] Attitude/Behavior: [cooperative, guarded, irritable, withdrawn, indifferent] Mood: [depressed 8 out of 10 depressed, anxious 5 out of 10, less irritable, less fearful, less hopelessness Affect: [ lively, incongruent, labile Orientation: [time, person, place situation] Thought Content: [wnl Risk Factors: [Recurrent suicidal (ideations, plan), and/or Homicidal (ideations , plan)] Perception: [wnl, denies hallucinations (auditory, visual, tactile) Thought Processes: [concrete, circumstantial Concentration/Attention Span: [ impaired] [Per observation and interview with the patient] Recent Memory: [ impaired] [0 out of 3 in 3 minutes] Remote Memory: [wnl] [past events, as related history] Intelligence: [ above average] [based on history, based on vocabulary, syntax, grammar, and content] Judgement: [fair] [per patient's behavior/history of present illness] Insight: [fair] [understanding severity of illness/history of present illness] lacks insight on.peer Interactions Admitting Diagnosis: [Bipolar affective disorder with acute psychosis secondary to steroid induced] Initial Plan of Care: [She will be admitted formal voluntary for inpatient psychiatric treatment on [address] [place] [address]. She will be put on usual 15 minute checks and usual protocol the psychiatric unit for safety and well-being. She'll be evaluated by medicine, psychiatry, nursing staff, social work, and occupational therapy. She will be integrated [facility] milieu therapeutic environment whereby she'll be expected to go to groups take medications and work towards discharge. A thorough biopsychosocial assessment will be done with team management a multidisciplinary group on a daily basis. She'll be started on Invega 3 mg by mouth daily at bedtime for acute psychosis and Lamictal 25 mg by mouth daily at bedtime for mood stability. We did talk about the benefit risk ratio of being on medications and breast-feeding and further discussion will be had during her hospital stay.] Estimated Length of Stay: [5 days] Initial Discharge Plan: [home, referred to therapist Prognosis: [fair] Justification for Inpatient Hospitalization - [ anxiety, depression resulting in significant loss of functioning.] [Dangerous to self, others, or property with need for controlled environment.] [Emotional or behavioral conditions and complications requiring 24 hour medical and nursing care.] Inappropriate. Interaction [Need for special drug therapy, or other therapeutic program requiring continuous hospitalization.] (1) Bipolar disorder, current episode mixed, severe, with psychotic features Current Visit: No Status: Acute Priority: Medium Code(s): F31.64 - BIPOLAR DISORD, CRNT EPISODE MIXED, SEVERE, W PSYCH FEATURES SNOMED Code(s): 768255790 Plan: She'll be started on Invega 3 mg by mouth daily at bedtime for acute psychosis and Lamictal 25 mg by mouth daily at bedtime for mood stability. We did talk about the benefit risk ratio of being on medications and breast-feeding and further discussion will be had during her hospital stay. 06/23/2018: Increase Invega 6 mg by mouth at bedtime for acute psychosis and delusional thinking, increase Lamictal to 50 mg by mouth daily at bedtime at bedtime for mood stability and add Effexor 37.5 mg XR by mouth daily at bedtime for depression and anxiety. His we titrated until 9 mg of Invega and 200 mg Lamictal with the titration dose of Effexor to 25 mg xr a day] 06/24/2018: Invega increased to 9 mg, Effexor increased to 75 mg XR by mouth daily at bedtime, Lamictal 100 mg discussed today about discharge tomorrow and she rescinded her AMA. Time with Patient: Greater than 30
[2018-06-24] MEDS ORDERED: lamoTRIgine 25 MG TAB PO SCH (21:00)
[2018-06-24] MEDS ORDERED: PALIPERIDONE 3 MG TAB.ER.24 PO SCH (21:00)
[2018-06-24] MEDS ORDERED: VENLAFAXINE HCL ER 75 MG CAP PO SCH (21:00)
[2018-06-24] MEDS: lamoTRIgine 100 MG TAB PO SCH (21:02)
[2018-06-24] MEDS: VENLAFAXINE HCL ER 150 MG CAP PO SCH (21:02)
--- NOTE | 2018-06-25 11:16 | P.PN ---
Subjective Progress Note Date: 06/25/18 Principal diagnosis: Bipolar affective disorder with acute psychosis secondary to steroid induced I fell horribly depressed sad, paranoid and tearful. 06/23/2018: I am depressed, lonely, craving human contact and the sexual desires. She denies any suicidal homicidal. She is extremely paranoid, felt full of guilt and shame for action she's done in the past and at present. 06/24/2018: I'm less depressed today lonely and wanting to get home and my children. I have said some concern about my and how these interacting with the children. She denies suicidal or homicidal ideation today. She is able to resend her AMA form today. 06/25/2018: Patient presents with flat facies psychomotor retardation, did not go to breakfast has not dressed and has not gone to any groups today. She states that she had a dream and someone was murdered and in the dream her brother told her who was. She obviously looks psychomotor retarded slow lethargic and remains suicidal Objective - Vital Signs Vital signs: Vital Signs Temp 98.4 F 06/25/18 06:16 Pulse 111 H 06/25/18 06:16 Resp 16 06/25/18 06:16 BP 114/78 06/25/18 06:16 Pulse Ox 100 06/18/18 20:26 - Labs CBC & Chem 7: 06/21/18 07:54 06/21/18 07:54 Assessment and Plan Assessment: Patient is a 32-year-old female who presents emergency Department today with complaints of feeling foggy and not acting right. Patient has a history of primary sclerosing cholangitis. She previously followed with Dr. Oliveira and also has regular scheduled MRCP is in HIDA scans at [facility]. Patient reports that she returned home from a vacation in [place] this past week. She reports that while she was in [place] she was hospitalized because of being very sick. She seems confused and not able to tell me her exact finishing diagnosis. But she was sent home on steroids and antibiotics and mesalamine. Patient states that she does not know if she is taking her medications appropriately. She states that she seems very confused and scatter brained. Patient denies any headache. She reports some mild abdominal discomfort and is had a poor appetite over the past few days. Patient is a mother of 4 children, and is currently breast-feeding. She states that it seemed like her milk supplies dwiddling as well. Patient states that she is concerned that her liver enzymes may be elevated causing her to feel foggy and confused. - . Musculoskeletal Examination - Abnormal/Involuntary Movements: [none] Strength: [greater than antigravity (greater than/equal to 3/5) in all extremities:] Muscle Tone: [no impairment Gait: [grossly normal Station: [grossly normal Mental Status Examination - General Appearance: [ casual, appears stated age, childlike behavior, psychomotor retarded Speech/Language: [spontaneous, rambled, expressive, soft, slow] Attitude/Behavior: [cooperative, guarded, irritable, withdrawn, indifferent] Mood: [depressed 8 out of 10 depressed, anxious 5 out of 10, less irritable, less fearful, less hopelessness Affect: [ lively, incongruent, labile Orientation: [time, person, place situation] Thought Content: [wnl Risk Factors: [Recurrent suicidal (ideations, plan), and/or Homicidal (ideations , plan)] Perception: [wnl, denies hallucinations (auditory, visual, tactile) Thought Processes: [concrete, circumstantial Concentration/Attention Span: [ impaired] [Per observation and interview with the patient] Recent Memory: [ impaired] [0 out of 3 in 3 minutes] Remote Memory: [wnl] [past events, as related history] Intelligence: [ above average] [based on history, based on vocabulary, syntax, grammar, and content] Judgement: [fair] [per patient's behavior/history of present illness] Insight: [fair] [understanding severity of illness/history of present illness] lacks insight on.peer Interactions Admitting Diagnosis: [Bipolar affective disorder with acute psychosis secondary to steroid induced] Initial Plan of Care: [She will be admitted formal voluntary for inpatient psychiatric treatment on [address] [place] [address]. She will be put on usual 15 minute checks and usual protocol the psychiatric unit for safety and well-being. She'll be evaluated by medicine, psychiatry, nursing staff, social work, and occupational therapy. She will be integrated [facility] milieu therapeutic environment whereby she'll be expected to go to groups take medications and work towards discharge. A thorough biopsychosocial assessment will be done with team management a multidisciplinary group on a daily basis. She'll be started on Invega 3 mg by mouth daily at bedtime for acute psychosis and Lamictal 25 mg by mouth daily at bedtime for mood stability. We did talk about the benefit risk ratio of being on medications and breast-feeding and further discussion will be had during her hospital stay.] Estimated Length of Stay: [5 days] Initial Discharge Plan: [home, referred to therapist Prognosis: [fair] Justification for Inpatient Hospitalization - [ anxiety, depression resulting in significant loss of functioning.] [Dangerous to self, others, or property with need for controlled environment.] [Emotional or behavioral conditions and complications requiring 24 hour medical and nursing care.] Inappropriate. Interaction [Need for special drug therapy, or other therapeutic program requiring continuous hospitalization.] (1) Bipolar disorder, current episode mixed, severe, with psychotic features Current Visit: No Status: Acute Priority: Medium Code(s): F31.64 - BIPOLAR DISORD, CRNT EPISODE MIXED, SEVERE, W PSYCH FEATURES SNOMED Code(s): 780624522 Plan: She'll be started on Invega 3 mg by mouth daily at bedtime for acute psychosis and Lamictal 25 mg by mouth daily at bedtime for mood stability. We did talk about the benefit risk ratio of being on medications and breast-feeding and further discussion will be had during her hospital stay. 06/23/2018: Increase Invega 6 mg by mouth at bedtime for acute psychosis and delusional thinking, increase Lamictal to 50 mg by mouth daily at bedtime at bedtime for mood stability and add Effexor 37.5 mg XR by mouth daily at bedtime for depression and anxiety. His we titrated until 9 mg of Invega and 200 mg Lamictal with the titration dose of Effexor to 25 mg xr a day] 06/24/2018: Invega increased to 9 mg, Effexor increased to 75 mg XR by mouth daily at bedtime, Lamictal 100 mg discussed today about discharge tomorrow and she rescinded her AMA. 06/25/2018: Due to psychomotor retardation, lethargy, difficulty in focusing will decrease the Invega to 3 mg and maintain rest medication to see if she improves. She is instructed to go to groups take a shower, eat meals which she has not done, so far Time with Patient: Greater than 30
[2018-06-25] MEDS: PALIPERIDONE 3 MG TAB.ER.24 PO SCH (21:13)
[2018-06-25] MEDS: VENLAFAXINE HCL ER 150 MG CAP PO SCH (21:14)
[2018-06-25] MEDS: lamoTRIgine 100 MG TAB PO SCH (21:14)
[2018-06-26] MEDS: LORazepam 1 MG TAB PO PRN (01:50)
[2018-06-26 06:23] VITALS: RESP 16
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
[2018-06-26] MEDS: PALIPERIDONE 3 MG TAB.ER.24 PO SCH (20:58)
[2018-06-26] MEDS: lamoTRIgine 100 MG TAB PO SCH (20:59)
[2018-06-26] MEDS: VENLAFAXINE HCL ER 75 MG CAP PO SCH (20:59)
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
[2018-06-27] MEDS: PALIPERIDONE 6 MG TAB.ER.24 PO SCH (20:17)
[2018-06-27] MEDS: lamoTRIgine 100 MG TAB PO SCH (20:17)
[2018-06-27] MEDS: VENLAFAXINE HCL ER 75 MG CAP PO SCH (20:17)
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
[2018-06-28] MEDS: lamoTRIgine 100 MG TAB PO SCH (21:02)
[2018-06-28] MEDS: PALIPERIDONE 6 MG TAB.ER.24 PO SCH (21:02)
[2018-06-28] MEDS: VENLAFAXINE HCL ER 75 MG CAP PO SCH (21:02)
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
[2018-06-29] MEDS: PALIPERIDONE 6 MG TAB.ER.24 PO SCH (20:40)
[2018-06-29] MEDS: VENLAFAXINE HCL ER 75 MG CAP PO SCH (20:40)
[2018-06-29] MEDS: lamoTRIgine 100 MG TAB PO SCH (20:40)
[2018-06-30 06:32] VITALS: BP 105/59; PULSE 85; TEMP 97.9
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
== END 2018-06-30 14:22 | disposition home or self-care (01) | DRG 885 ==
LOC: EC 14:26 → 3MHU 20:17
PROVIDERS: ADMIT Psychiatry & Neurology Psychiatry; ATTEND Psychiatry & Neurology Psychiatry
DX: F31.64 Bipolar disorder, current episode mixed, severe, with psychotic features (principal); K51.90 Ulcerative colitis, unspecified, without complications; K83.01 Primary sclerosing cholangitis; F20.9 Schizophrenia, unspecified; T38.0X5A Adverse effect of glucocorticoids and synthetic analogues, initial encounter; F41.9 Anxiety disorder, unspecified; F09 Unspecified mental disorder due to known physiological condition; K76.9 Liver disease, unspecified; Z79.899 Other long term (current) drug therapy; Z88.8 Allergy status to other drugs, medicaments and biological substances; Z62.810 Personal history of physical and sexual abuse in childhood; Z83.49 Family history of other endocrine, nutritional and metabolic diseases; Z81.3 Family history of other psychoactive substance abuse and dependence; Z81.8 Family history of other mental and behavioral disorders
CPT/HCPCS: 36415; 70450; 80053; 80306; 81003; 81025; 82075; 82140; 84443; 85025; 85027; 85610; 85730; 96360; 96361; 99285

== ENCOUNTER → 2019-11-15 | Outpatient (CLI) | payer OTHER | END | disposition home or self-care (01) | LOC: LABWHC1 11:20 | PROVIDERS: ATTEND Obstetrics & Gynecology | DX: R05 Cough (principal) ==

== ENCOUNTER 2019-12-31 06:15 | Inpatient (IN) | payer OTHER ==
[2019-12-31] MEDS ORDERED: TERBUTALINE 1 MG/ML VIAL SQ PRN (06:53)
[2019-12-31] MEDS ORDERED: OXYTOCIN 10 UNIT/ML 1 ML VIAL IM PRN (06:53)
[2019-12-31] MEDS ORDERED: CARBOPROST TROMETHAMINE 250 MCG/ML 1 ML AMP IM PRN (06:53)
[2019-12-31] MEDS ORDERED: METHYLERGONOVINE 0.2 MG/ML 1 ML AMP IM PRN (06:53)
[2019-12-31] MEDS ORDERED: LIDOCAINE 0.5% (PF) 5 MG/ML (50 ML SDV) SQ PRN (06:53)
[2019-12-31] MEDS ORDERED: OXYTOCIN 30 UNITS/500 ML NS 30 UNIT in SALINE 1 500ML.BAG IV SCH (07:00)
[2019-12-31] MEDS ORDERED: LACTATED RINGERS 1,000 ML IV SCH (07:00)
[2019-12-31 07:13] LABS: Basophils % (A) 0 %; Eosinophils # (A) 0.1 k/uL (0-0.7); Eosinophils % (A) 1 %; HCT 39.8 % (34.0-46.0); HGB 13.1 gm/dL (11.4-16.0); Lymphocytes % (A) 20 %; MCH 29.4 pg (25.0-35.0); Mean Platelet Volume 7.6; Monocytes # (A) 0.5 k/uL (0-1.0); Monocytes % (A) 5 %; Neutrophils # (A) 7.1 k/uL (1.3-7.7); Neutrophils % (A) 71 %; Platelet Count 181 k/uL (150-450); RBC 4.47 m/uL (3.80-5.40); RDW 13.9 % (11.5-15.5); WBC 10.1 k/uL (3.8-10.6)
[2019-12-31] MEDS: LACTATED RINGERS 1,000 ML IV SCH ×3 (07:33→11:53)
--- NOTE | 2019-12-31 08:34 | P.HPOB ---
History of Present Illness H&P Date: 12/31/19 Chief Complaint: Intrauterine at term: Sclerosing cholangitis Suzan is a 34-year-old at 37 weeks 4 days gestation who has a history of sclerosing cholangitis and the recommendation was to induce her between 37 and 38 weeks. Risks of early induction were reviewed patient in detail and all questions were answered for her however risk of compromise or demise after 37 weeks for 38 weeks was reviewed and was related her by MFM and therefore we are inducing her early further recommendation. Her course from my standpoint has been relatively unremarkable she did have some itching but liver enzymes have remained stable through the she's been having NSTs and biophysical profiles approximately 32 weeks and they have all been reactive she is dilated to 2 half centimeters 8070-80% effaced and -2 station with artificial rupture membranes performed and clear fluid noted. She does have a history of rapid labors and that is another reason we are at this time. Her other pregnancies have all again remained unremarkable but for her sclerosing cholangitis and ulcerative colitis which is remained relatively stable during the . She does have a history of severe depression after her last and likely will need to be discharged on antidepressant once baby is delivered. A category 1 tracing is noted and Pitocin augmentation of labor is being performed. Pertinent labs: A+ blood type Rh and it was negative, rubella immune, hepatitis be surface antigen and RPR as well as HIV were all negative as well as groupie strep. Her liver enzymes have remained relatively stable through the and the last check had a normal AST with a fractional elevated ALC 44. Otherwise she is feeling well at this time and will plan spontaneous vaginal delivery. Past Medical History Past Medical History: Liver Disease Additional Past Medical History / Comment(s): Patient has a history of primary sclerosing cholangitis. Patient also has ulcerative colitis. History of Any Multi-Drug Resistant Organisms: None Reported Past Surgical History: Adenoidectomy, Tonsillectomy Additional Past Surgical History / Comment(s): ERCP and Colonoscopy Past Anesthesia/Blood Transfusion Reactions: No Reported Reaction Past Psychological History: Bipolar Additional Psychological History / Comment(s): pt is unable to keep thoughts straight and appears very disorganized. pt struggles at recalling past medical hx Smoking Status: Never smoker Past Alcohol Use History: Occasional Additional Past Alcohol Use History / Comment(s): states due to her liver disease she stays away from etoh Past Drug Use History: None Reported Additional Drug Use History / Comment(s): denies - Past Family History Mother Family Medical History: Thyroid Disorder Additional Family Medical History / Comment(s): pt states that mom took medication for this disorder Father Additional Family Medical History / Comment(s): PTSD Medications and Allergies Home Medications Medication Instructions Recorded Confirmed Type RX: Pnv No.95/Ferrous Fum/Folic AC 1 tab PO ONCE 12/31/19 12/31/19 History [ Multivitamin Tablet] Allergies Allergy/AdvReac Type Severity Reaction Status Date / Time NSAIDS (Non-Steroidal AdvReac Mild Nausea & Verified 12/31/19 06:51 Anti-Inflamma Vomiting acetaminophen AdvReac Nausea & Verified 12/31/19 06:51 Vomiting Exam Osteopathic Statement: *. No significant issues noted on an osteopathic structural exam other than those noted in the History and Physical/Consult. Vital Signs Temp Pulse Resp BP 12/31/19 07:23 97.2 F L 80 18 110/72 Intake and Output 12/30/19 12/31/19 12/31/19 22:59 06:59 14:59 Other: Weight 93.44 kg 93.44 kg - OBG Physical Exam Breast: both: normal (no masses) Abdomen: bowel sounds normal, no diffuse tenderness, no bruit present, no guarding noted, no hepatomegaly, no splenomegaly, no mass Vulva: both: normal Vagina: normal moisture, no discharge Cervix: no lesion, no discharge Uterus: normal size, normal contour Adnexa: both: normal Anus/Rectum: normal perianal skin, no rectal mass, no hemorrhoids, heme negative Results Result Diagrams: 12/31/19 06:45
[2019-12-31] MEDS ORDERED: CITRIC ACID-SODIUM CITRATE 15 ML CUP PO ONE (10:41)
[2019-12-31] MEDS ORDERED: ZOLPIDEM 5 MG TAB PO PRN (11:22)
[2019-12-31] MEDS ORDERED: diphenhydrAMINE 50 MG CAP PO PRN (11:22)
[2019-12-31] MEDS ORDERED: diphenhydrAMINE 50 MG/ML 1 ML VIAL IVP PRN ×2 (11:22)
[2019-12-31] MEDS ORDERED: ONDANSETRON 4 MG/2 ML VIAL IVP PRN (11:22)
[2019-12-31] MEDS ORDERED: NALOXONE 0.4 MG/ML 1 ML VIAL IV PRN (11:22)
[2019-12-31] MEDS ORDERED: METOCLOPRAMIDE 5 MG/ML 2 ML VIAL IVP PRN (11:22)
[2019-12-31] MEDS ORDERED: diphenhydrAMINE 25 MG CAP PO PRN (11:22)
[2019-12-31] MEDS ORDERED: HYDROmorphone 2 MG TAB PO PRN (11:24)
--- NOTE | 2019-12-31 11:28 | P.OP ---
Date of Procedure: 12/31/19 Preoperative Diagnosis: Intrauterine term: Malpresentation during labor Procedure(s) Performed: Primary low transverse section Anesthesia: spinal Surgeon: Daniele Pastrana [employer] #1: Bruce Gross Estimated Blood Loss (ml): 400 IV fluids (ml): 1,000 Urine output (ml): 300 Pathology: other (Placenta) Condition: stable Disposition: floor Operative Findings: Male scores of 9 and 9 at one and 5 minutes respectively weight was 5 lbs. 4 oz. During the labor process there was some rapid increase in heart rate from baseline of approximately 130s to 160s to 180s with occasional decelerations a could be construed as a late therefore an exam was done and the field was any part did not feel like a head at that point I was called and I came over and agreed that it felt more like a shoulder now it seems like based on the findings that at some point the baby shifted and went from vertex to almost a transverse presentation. With the head now more on the left side Description of Procedure: Patient was taken to the operating suite where a spinal anesthetic was found be adequate. She was prepped and draped in normal sterile fashion and placed in the dorsal supine position with leftward tilt. Initially a Pfannenstiel skin incision was made and this incision was then carried through to underlying layer of the fascia with the second knife. Fascia was then nicked in the midline and this opening was extended laterally with Sheikh scissors. Superior and inferior aspect of this incision were then grasped tented up and bluntly and sharply dissected off the rectus muscles. Rectus muscles were then divided in the midline and sharp dissection the peritoneum was done. This opening was then extended superiorly and inferiorly with good visualization of both bowel bladder. Bladder blade was then placed and bladder flap identified. It was entered with Metzenbaum scissors and carried across face the uterus. It was then bluntly dissected out of the operative field. Knife was then used to incise the uterus this opening was then fully developed with a hemostat and extended bluntly. Evaluation of the present part it grossly appeared now to be a shoulder with the head off the left however we were able to rotate the head into the incision and deliver the patient vertex. Once baby was rotated into a vertex presentation we're really easily deliver the baby's head and the anterior posterior shoulders. I believe the left shoulder was down. Once baby was fully delivered mouth nares were bulb suctioned and nursery personnel was present to assume care. Placenta was then delivered intact following clamping and cutting of the cord. Uterus was then exteriorized cleared of clots and debris and closed in 2 layers with 0 Vicryl suture. Once excellent hemostasis was obtained blood and debris was suctioned from the posterior cul-de-sac and uterus was reinserted into the abdomen. Peritoneal layer was then closed with 0 Vicryl suture. Fascial layer was closed with 0 Vicryl suture. One layer of 3-0 Vicryl was placed in deep subcuticular tissues reapproximate skin and close space. Skin was then closed with 3-0 Vicryl subcuticular. Sponge, lap, needle counts were all correct 2. Patient was then taken to the recovery room
[2019-12-31] MEDS: PRENATAL VIT-IRON-FOLIC ACID 1 EACH CAP PO SCH (16:35)
[2019-12-31] MEDS: SERTRALINE 25 MG TAB PO SCH (17:26)
[2020-01-01 02:34] VITALS: RESP 16
[2020-01-01] MEDS: SENNOSIDES-DOCUSATE SODIUM 1 EACH TAB PO SCH ×2 (02:41→08:27)
[2020-01-01 06:31] LABS: Basophils % (A) 0 %; Eosinophils # (A) 0.2 k/uL (0-0.7); Eosinophils % (A) 2 %; HCT 34.2 % (34.0-46.0); Lymphocytes # (A) 1.7 k/uL (1.0-4.8); Lymphocytes % (A) 19 %; MCH 29.1 pg (25.0-35.0); MCV 90.7 fL (80.0-100.0); Mean Platelet Volume 7.7; Monocytes # (A) 0.5 k/uL (0-1.0); Monocytes % (A) 6 %; Neutrophils # (A) 6.4 k/uL (1.3-7.7); Neutrophils % (A) 71 %; Platelet Count 166 k/uL (150-450); RBC 3.77 m/uL (3.80-5.40); RDW 14.1 % (11.5-15.5); WBC 9.1 k/uL (3.8-10.6)
--- NOTE | 2020-01-01 06:55 | P.PNOBGPC ---
Subjective - Subjective Patient reports: Reports appetite normal, Reports voiding normally, Reports pain well controlled, Reports ambulating normally : doing well Objective - Vital Signs Latest vital signs: Vital Signs Temp Pulse Resp BP Pulse Ox 01/01/20 03:42 97.8 F 60 16 106/60 99 01/01/20 00:00 97.9 F 55 L 16 103/63 99 12/31/19 20:00 98.2 F 58 L 16 101/60 12/31/19 17:20 53 L 101/62 99 12/31/19 15:43 97.5 F L 58 L 18 107/58 12/31/19 13:30 97.4 F L 60 18 100/62 98 12/31/19 13:00 97.4 F L 60 18 100/62 98 12/31/19 12:30 97.4 F L 64 18 93/52 96 12/31/19 12:15 58 L 92/51 12/31/19 12:00 97.5 F L 65 18 85/52 97 12/31/19 11:45 97.6 F 65 18 89/51 96 12/31/19 11:30 96.4 F L 66 18 98/54 98 12/31/19 07:23 97.2 F L 80 18 110/72 Intake and Output 12/31/19 12/31/19 01/01/20 14:59 22:59 06:59 Output Total 350 150 Balance -350 -150 Output: Urine 350 150 Uretheral (Fraga) 200 Other: Voiding Method Toilet # Voids 1 Weight 93.44 kg - Exam Lungs: bilateral: normal Chest: Normal S1, Normal S2 Extremities: Present: normal Abdomen: Present: normal appearance, soft. Absent: distention, tenderness Incision: Present: normal, dry, intact Uterus: Present: normal, firm - Labs Labs: Abnormal Lab Results - Last 24 Hours (Table) 01/01/20 Range/Units 05:26 RBC 3.77 L (3.80-5.40) m/uL Hgb 11.0 L (11.4-16.0) gm/dL Assessment and Plan Assessment: Postoperative day #1. Patient is resting without new complaints. Vital signs are stable and she is afebrile. Uterus is firm nontender and her incision is intact and dry. CBC today was normal. Patient is tolerating regular diet. Plan today is to encourage ambulation, allow the patient shower, and continue routine postoperative care (1) delivery delivered Current Visit: Yes Status: Acute Code(s): O82 - ENCOUNTER FOR DELIVERY WITHOUT INDICATION SNOMED Code(s): 957152842
[2020-01-01] MEDS: LACTATED RINGERS 1,000 ML IV SCH (08:27)
[2020-01-01] MEDS: SERTRALINE 25 MG TAB PO SCH (08:27)
[2020-01-01] MEDS: IBUPROFEN 600 MG TAB PO PRN ×2 (12:30→18:01)
[2020-01-01] MEDS: PRENATAL VIT-IRON-FOLIC ACID 1 EACH CAP PO SCH (12:31)
[2020-01-01] MEDS: SIMETHICONE 80 MG CHEWABLE PO SCH (13:53)
--- NOTE | 2020-01-01 17:47 | CONS ---
CONSULTATION DATE OF SERVICE: January 01, 2020. REASON FOR CONSULTATION: Management of ulcerative colitis and PSC. HISTORY OF PRESENT ILLNESS: The patient is a 34-year-old pleasant white female who underwent yesterday and had an eventful recovery. We are consulted for management of ulcerative colitis and primary sclerosing cholangitis. The patient states that she was diagnosed with this condition at age 31 and she follows at [facility]. She has colonoscopies done regularly. She was on Asacol 1600 mg 3 times daily as a maintenance dose. However, during , she discontinued the medications. She is concerned about . She had ulcerative colitis that normally happens to her from her pregnancies. Currently, she has 1 or 2 bowel movements daily. No blood or mucus in the stool. She denies any abdominal pain. Reports no nausea or vomiting. PAST MEDICAL HISTORY: Significant for ulcerative colitis diagnosed at age 31, PSC diagnosed at age 31. PAST SURGICAL HISTORY: , multiple colonoscopies on a yearly basis. Last one she recalls having a year ago. SOCIAL HISTORY: No smoking or alcohol use. FAMILY HISTORY: Unremarkable. MEDICATIONS: Medications prior to admission: Multivitamins. PHYSICAL EXAMINATION: Appears comfortable in no apparent distress. Vital signs stable. Blood pressure is 116/72, pulse is 72. Temperature 97.6. HEENT examination unremarkable. Conjunctivae pink. Sclerae anicteric. Oral cavity no lesions. NECK: No JVD or lymph node enlargement. CHEST: Clear to auscultation. HEART: Regular rate and rhythm. ABDOMEN: Soft. Bowel sounds are positive. No organomegaly. EXTREMITIES: No pedal edema. SKIN no rashes. NEUROLOGIC: Alert and oriented x3. No focal deficits. LABS: WBC 10, hemoglobin 13.1. Platelets normal. Today hemoglobin 11. IMPRESSION: 1. Status post yesterday with good recovery. 2. History of ulcerative colitis diagnosed at age 31. Patient maintained on Asacol 1600 mg 3 times daily and currently has been off the medications for one year, remains in clinical remission. 3. History of PSC, has yearly MRCP done at [facility]. The last 1 according to her was a year ago, which showed no significant changes of concern. RECOMMENDATIONS: I had a lengthy discussion with the patient regarding starting her back on oral mesalamine to prevent post flare-up of ulcerative colitis. She states that her Asacol is not being covered by her insurance and hence we will start her on 2.2 g 3 times daily. The prescription will be called into her pharmacy at this time. However, she was also advised to follow up in the office in 6 weeks following discharge from the hospital. In regards to PSC, she was advised to continue her care at [facility]. Thank you for this consultation. MMMELINDAL / HAILEN: [phone] /
[2020-01-02] MEDS: SENNOSIDES-DOCUSATE SODIUM 1 EACH TAB PO SCH ×2 (01:17→08:14)
[2020-01-02] MEDS: IBUPROFEN 600 MG TAB PO PRN ×2 (03:06→09:51)
[2020-01-02] MEDS: SIMETHICONE 80 MG CHEWABLE PO SCH ×3 (03:06→10:14)
--- NOTE | 2020-01-02 07:02 | P.PNOBGPC ---
Subjective - Subjective Patient reports: Reports appetite normal, Reports voiding normally, Reports pain well controlled, Reports ambulating normally : doing well Objective - Vital Signs Latest vital signs: Vital Signs Temp Pulse Resp BP Pulse Ox 01/02/20 00:00 98.0 F 62 16 110/75 98 01/01/20 16:00 97.9 F 67 16 98/53 97 01/01/20 08:00 97.6 F 72 16 116/72 98 Intake and Output 01/01/20 01/02/20 01/02/20 22:59 06:59 14:59 Other: Voiding Method Toilet # Voids 2 3 - Exam Lungs: bilateral: normal Chest: Normal S1, Normal S2 Extremities: Present: normal Abdomen: Present: normal appearance, soft. Absent: distention, tenderness Incision: Present: normal, dry, intact Uterus: Present: normal, firm Assessment and Plan Assessment: Postoperative day #2. Patient is resting without complaints and wishes to go home. Vital signs are stable she's afebrile. She's having normal lochia. Her incision is intact and dry. Patient was seen by gastroenterology and cleared for discharge. Plan today is to continue routine care discharge home later today (1) delivery delivered Current Visit: Yes Status: Acute Code(s): O82 - ENCOUNTER FOR DELIVERY WITHOUT INDICATION SNOMED Code(s): 018356065
--- NOTE | 2020-01-02 07:09 | P.DS ---
Providers Date of admission: 12/31/19 06:37 Expected date of discharge: 01/02/20 Attending physician: Daniele Pastrana Consults: 12/31/19 16:13 Consult Physician Urgent Consulting Provider: Magaly Ching Consult Reason/Comments: s/p c/s. has sclerosing cholangitis and ulcerative colitis Do you want consulting provider notified?: Yes Primary care physician: Stated None - Discharge Diagnosis(es) (1) delivery delivered Current Visit: Yes Status: Acute Hospital Course: Please see dictated H&P for intimate details of this patient's admission. Brief summary this is a 34-year-old 6 para 4 female 37 and 6 4/7 weeks gestation dated for induction of labor by Dr. Pastrana. Patient subsequently undergoes a primary low transverse section for malpresentation. Please see his dictated delivery note. patient was seen by gastroenterology for her sclerosing cholangitis. Patient did quite well and on postoperative day #2 felt be stable for discharge home follow up with Dr. Pastrana next week. Procedures: Induction of labor and primary low transverse section Patient Condition at Discharge: Good Plan - Discharge Summary New Discharge Prescriptions: New Ibuprofen [Motrin] 600 mg PO Q6HR PRN #40 tab PRN Reason: Mild Pain Or Fever >= 100.5 No Action Pnv No.95/Ferrous Fum/Folic AC [ Multivitamin Tablet] 1 tab PO ONCE Discharge Medication List Pnv No.95/Ferrous Fum/Folic AC [ Multivitamin Tablet] 1 tab PO ONCE 12/31/19 [History] Ibuprofen [Motrin] 600 mg PO Q6HR PRN #40 tab 01/02/20 [Rx] Follow up Appointment(s)/Referral(s): Daniele Pastrana DO [Doctor of Osteopathic Medicine] - 01/11/20 9:00 am (Please see Dr. Pastrana on February 10 at 10:45 AM as well.) Magaly Ching MD [STAFF PHYSICIAN] - 6 Weeks Patient Instructions/Handouts: (DC) Activity/Diet/Wound Care/Special Instructions: No intercourse or anything per vagina for 6 weeks. No strenuous activities. No driving. Discharge Disposition: HOME SELF-CARE
[2020-01-02 08:13] VITALS: BP 112/73; PULSE 58; TEMP 97.7
[2020-01-02] MEDS: PRENATAL VIT-IRON-FOLIC ACID 1 EACH CAP PO SCH (10:14)
[2020-01-02] MEDS: SERTRALINE 25 MG TAB PO SCH (10:14)
--- NOTE | 2020-01-02 17:12 | PN ---
PROGRESS NOTE DATE OF SERVICE: 01/02/2020 Patient is a 34-year-old pleasant white female who is 2 days , underwent a C- section and recovering well. She denies any complaints. She has some diarrhea with 3 loose bowel movements today. No bleeding. History of ulcerative colitis diagnosed at age 14. PHYSICAL EXAMINATION: Appears comfortable. Vital signs stable. Blood pressure 112/73, pulse rate 58, temperature 97.7. HEENT examination unremarkable. CHEST: Clear to auscultation. HEART: Regular rate and rhythm. ABDOMEN: Benign. Bowel sounds are positive. No organomegaly. EXTREMITIES: No pedal edema. NEUROLOGIC: Alert and oriented x3. No focal deficits. LABS: No labs available from today. IMPRESSION: 1. day #2 status post , doing well. 2. History of ulcerative colitis and PSC diagnosed at age 14. Follows at [facility]. currently having mild diarrhea and was maintained on Asacol, but she has been off the medications since the . RECOMMENDATION: 1. Start 750 mg 3 tablets 3 times daily. 2. She was advised to follow up in office in 6 weeks following discharge from the hospital. Call us if she has any flare up of symptoms. Thank you for this consultation. MMMELINDAL / AHILEN: [phone] /
== END 2020-01-02 13:10 | disposition home or self-care (01) | DRG 787 ==
LOC: 4FBP 06:37
PROVIDERS: ADMIT Obstetrics & Gynecology; ATTEND Obstetrics & Gynecology
PROC: 10D00Z1 Extraction of Products of Conception, Low, Open Approach (ICD-10-PCS; principal; 2019-12-31 06:15)
DX: O26.62 Liver and biliary tract disorders in childbirth (principal); K83.01 Primary sclerosing cholangitis; K51.90 Ulcerative colitis, unspecified, without complications; O32.2XX0 Maternal care for transverse and oblique lie, not applicable or unspecified; O99.62 Diseases of the digestive system complicating childbirth; Z37.0 Single live birth; Z3A.37 37 weeks gestation of pregnancy; Z88.6 Allergy status to analgesic agent; Z86.59 Personal history of other mental and behavioral disorders; Z90.89 Acquired absence of other organs; Z81.8 Family history of other mental and behavioral disorders; Z83.49 Family history of other endocrine, nutritional and metabolic diseases
CPT/HCPCS: 85025; 86850; 86900; 86901